=== PATIENT | female | born 1955 | race Caucasian/White ===

== ENCOUNTER 2017-05-14 15:13 | Outpatient (CLI) | payer OTHER | END 2017-05-14 19:25 | disposition home or self-care (01) | LOC: SMA 15:13 | PROVIDERS: ATTEND Family Medicine | DX: Z12.31 Encounter for screening mammogram for malignant neoplasm of breast (principal) | CPT/HCPCS: G0202 ==

== ENCOUNTER 2018-06-22 14:40 | Outpatient (CLI) | payer OTHER | END 2018-06-22 20:48 | disposition home or self-care (01) | LOC: SMA 14:40 | PROVIDERS: ATTEND Physician Assistant Medical | DX: Z12.31 Encounter for screening mammogram for malignant neoplasm of breast (principal) | CPT/HCPCS: 77067 ==

== ENCOUNTER 2019-09-21 15:52 | Outpatient (CLI) | payer OTHER | END 2019-09-21 20:38 | disposition home or self-care (01) | LOC: SMA 15:52 | PROVIDERS: ATTEND Family Medicine | DX: Z12.31 Encounter for screening mammogram for malignant neoplasm of breast (principal); N64.89 Other specified disorders of breast | CPT/HCPCS: 77067 ==

== ENCOUNTER 2020-10-19 14:49 | Outpatient (CLI) | payer OTHER | END 2020-10-19 20:54 | disposition home or self-care (01) | LOC: SMA 14:49 | PROVIDERS: ATTEND Family Medicine | DX: Z12.31 Encounter for screening mammogram for malignant neoplasm of breast (principal) | CPT/HCPCS: 77067 ==

== ENCOUNTER 2022-07-11 15:17 | Outpatient (CLI) | payer OTHER | END 2022-07-11 18:53 | disposition home or self-care (01) | LOC: SMA 15:17 | PROVIDERS: ATTEND Family Medicine | DX: Z12.31 Encounter for screening mammogram for malignant neoplasm of breast (principal) | CPT/HCPCS: 77067 ==

== ENCOUNTER 2023-10-09 11:41 | Outpatient (CLI) | payer OTHER | END 2023-10-09 20:26 | disposition home or self-care (01) | LOC: SMA 11:41 | PROVIDERS: ATTEND Physician Assistant Medical | DX: Z12.31 Encounter for screening mammogram for malignant neoplasm of breast (principal) | CPT/HCPCS: 77067 ==